=== PATIENT | male | born 1960 | race Caucasian/White ===

== ENCOUNTER → 2025-05-15 09:08 | Outpatient (REF) | payer OTHER, SELFPAY | LOC: WDC 09:08 | PROVIDERS: ATTENDING PHYSICIAN Physician Assistant Medical | DX: N63.42 Unspecified lump in left breast, subareolar (principal) | CPT/HCPCS: 76642; 77062; 77066 ==

== ENCOUNTER → 2025-05-17 07:59 | Outpatient (REF) | payer OTHER, SELFPAY ==
--- NOTE | 2025-05-17 13:15 | OID.BR.INTR ---
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
- -
Date of Contact: 05/17/25
Met with patient. Will follow up as needed per protocol.
== END ==
LOC: WDC 07:59
PROVIDERS: ATTENDING PHYSICIAN Physician Assistant Medical
DX: N63.42 Unspecified lump in left breast, subareolar (principal)
CPT/HCPCS: 19083; 88305